=== PATIENT | male | born 1960 | race Caucasian/White ===

== ENCOUNTER 2018-05-22 10:41 | Inpatient (IN) | payer OTHER ==
[2018-05-22] MEDS ORDERED: cloNIDine 0.1 MG TAB ONE (11:35)
[2018-05-22 11:37] LABS: Hemoglobin 12.7 g/dL (14.0-18.0); Mean Corpuscular HGB CONC 33.4 g/dL (32.0-36.0); Mean Corpuscular Hemoglobin 27.9 pg (27.0-31.0); Mean Corpuscular Volume 83.7 fL (78.0-98.0); Platelet Count 202 thou/uL (130-400); RBC Distribution Width 14.3 % (11.5-14.5); Red Blood Cell (RBC) Count 4.56 mill/uL (4.70-6.10); White Blood Cell (WBC) Count 13.1 thou/uL (4.8-10.8)
[2018-05-22 11:46] LABS: ALT (SGPT) 12 U/L (8-55); AST (SGOT) 14 U/L (5-34); Albumin 3.8 g/dL (3.5-5.0); Alkaline Phosphatase 80 U/L (40-150); Anion Gap 10 mmol/L (10-20); BUN (Urea Nitrogen) 12 mg/dL (8.4-25.7); Bilirubin, Total 0.6 mg/dL (0.2-1.2); CK (CPK) 58 U/L (30-200); Calc. Creatinine Clearance 0 mL/min (70-130); Calcium 9.5 mg/dL (7.8-10.44); Carbon Dioxide 26 mmol/L (22-29); Chloride 103 mmol/L (98-107); Estimated GFR-MDRD Greater than 90; Globulin 4.1 g/dL (2.4-3.5); Glucose 120 mg/dL (70-105); Potassium 4.1 mmol/L (3.5-5.1); Protein, Total 7.9 g/dL (6.0-8.3); Sodium 135 mmol/L (136-145)
--- NOTE | 2018-05-22 11:48 | RAD ---
ONE VIEW CHEST: HISTORY: Pain. COMPARISON: None. FINDINGS: Normal cardiac silhouette. The pulmonary vessels and hilum are normal. Costophrenic angles are clhoe r. No consolidation or mass. No pneumothorax or osseous abnormalities. IMPRESSION: No acute cardiopulmonary process. POS: [facility]
[2018-05-22 11:50] LABS: CKMB 2.5 ng/mL (0-6.6); Troponin I 0.076 ng/mL (< 0.028)
[2018-05-22 11:59] LABS: Band 1 % (5-11); Lymphocytes 45 % (21-51); MDiff Complete? YES; Monocytes 3 % (0-10); Neutrophil 42 % (42-75); PLT Morphology Comment Appears Adequate; Reactive Lymphocytes 9 % (0-10)
[2018-05-22] MEDS ORDERED: Ondansetron HCl/PF 4 MG/2 ML Vial IVP PRN (14:38)
[2018-05-22] MEDS ORDERED: Sodium Chloride 0.9% 1,000 ML IV SCH (14:38)
[2018-05-22] MEDS ORDERED: Acetaminophen 325 MG TAB PO PRN (14:38)
[2018-05-22] MEDS ORDERED: HYDROcodone/Acetaminophen 5/325 mg Tablet PO PRN ×2 (14:38)
[2018-05-22] MEDS ORDERED: Ondansetron ODT 4 MG TAB SL PRN (14:38)
[2018-05-22 14:55] LABS: Troponin I 0.546 ng/mL (< 0.028)
[2018-05-22] MEDS ORDERED: Communication Order-Pharmacy FS SCH (16:15)
[2018-05-22] MEDS ORDERED: Atorvastatin Calcium 40 MG TAB PO SCH (16:30)
[2018-05-22] MEDS ORDERED: Enoxaparin Sodium 120 MG/0.8 ML SYRINGE SC SCH (16:30)
[2018-05-22] MEDS: Metoprolol Tartrate 25 MG TAB PO SCH (21:03)
[2018-05-22 21:30] LABS: CKMB 5.8 ng/mL (0-6.6)
[2018-05-22 21:33] LABS: Troponin I 0.882 ng/mL (< 0.028)
--- NOTE | 2018-05-22 23:41 | HP ---
DATE OF ADMISSION: 05/22/2018 CHIEF COMPLAINT: Chest pain. HISTORY OF PRESENT ILLNESS: This is a 58-year-old male patient of Dr. Kaz Soto, who c pedro in with new onset of chest pain with radiation to the neck, jaw, shoulder, and then left hand, st arted acutely this morning after woke up when he was at rest. Denied any other symptoms. No headach e, visual changes or nausea or vomiting. He does say the chest pain feels like a pressure or crushin g-type pain, got slight shortness of breath with it once more of a steady sensation and it does not c ome and go. He does think he has had similar symptoms over the past 6 months, but it has only been w hen he is outside working in the heat and he would rest with that and the symptoms would subside, thi s is the first time this has happened while he was at rest. PAST MEDICAL HISTORY: Positive for diabetes and hyperlipidemia. PAST SURGICAL HISTORY: He has had a right knee surgery and a left foot surgery. CURRENT MEDICATIONS: Currently none. He has not been compliant with his lipid medicines and his sug ars have been good enough that he was led to believe that he could stop his glipizide that he was on. ALLERGIES: Has no known drug allergies. SOCIAL HISTORY: He is . No toxic habits. FAMILY HISTORY: He has had multiple members of his family that had coronary artery disease. I think both parents from heart disease at a young age. REVIEW OF SYSTEMS: Denies any fevers or chills. No headache, no visual changes, no troubles chewing or swallowing. He has had the symptoms as in the HPI, but no cough, no hemoptysis. Denies any naus ea, vomiting, diarrhea, constipation, no changes in bowel or bladder habits. Denies any neuromuscula r symptoms. No motor or sensory deficits. Denies any anxiety/depression symptoms, no suicidal or ho micidal ideations. No paresis or paresthesias. PHYSICAL EXAMINATION: GENERAL: He is resting comfortably in bed, sitting up, awake, and alert. VITAL SIGNS: His temperature is 98.9, pulse 77, BP is 156/84, respirations are 18, sat 99% on room a ir. HEENT EXAM: Essentially unremarkable. Normocephalic, atraumatic cranium with pupils that are equal, round, and reactive to light and accommodation. Extraocular movements are intact. He does wear gla sses. His sclerae is anicteric. Mucosa is moist. NECK: Supple, no JVD, no bruits, no thyromegaly, no lymphadenopathy. LUNGS: Clear to auscultation bilaterally with no rales, rhonchi, or wheezes. HEART: S1 and S2, with no rubs, murmurs, or gallops. ABDOMEN: Soft, nontender, nondistended, no palpable masses, no hepatosplenomegaly. Bowel sounds hyp oactive throughout. GENITOURINARY: Exams deferred. EXTREMITIES: Show good palpable pulses x4. No cyanosis or clubbing. There is some slight chronic e ye to the left lower extremity since surgery. NEUROLOGIC: Cranial nerves II through XII are equal and symmetrical. He is alert and oriented x4. There are no motor or sensory deficits appreciated. LABORATORY AND X-RAY FINDINGS: White count 13.1, H and H is 12.7 and 38.2 respectively with 202,000 platelets. Sodium is 134, potassium is 4.0, chloride is 103, bicarb is 26, BUN is 12, creatinine 0.8 , glucose at 120. His CK-MB is 2.5, troponin initially was indeterminate at 0.07, but then #2 was el evated at 0.54, and #3 is 0.85. BNP is upper limits of normal at 104. ASSESSMENT AND PLAN: Chest pain with likely coronary artery disease. Cardiology has seen the patien t and will catheterize him in the morning.
[2018-05-23] MEDS: Sodium Chloride 0.9% 1,000 ML IV SCH ×3 (00:16→17:47)
[2018-05-23] MEDS: Metoprolol Tartrate 25 MG TAB PO SCH ×2 (06:22→21:17)
[2018-05-23] MEDS ORDERED: Lidocaine 1% (PF) 30 ML VIAL ONE ×2 (06:32→07:36)
[2018-05-23] MEDS ORDERED: Heparin 0 ML ONE (06:32)
--- NOTE | 2018-05-23 07:55 | PRG ---
DATE OF SERVICE: 05/23/2018 Mr. Andersen is doing well. He reports no further chest pain. OBJECTIVE: VITAL SIGNS: Blood pressure 141/74, pulse 61, temperature 97.4. LUNGS: His lungs are clear. HEART: Reveals no murmur. LABORATORY: Troponins are a progressively elevated now at 0.882. IMPRESSION: Non-ST segment elevated myocardial infarction. PLAN: The patient is to undergo cardiac cath today.
[2018-05-23] MEDS ORDERED: Iopamidol 370 76% 100 ML VIAL ONE (11:06)
[2018-05-23] MEDS ORDERED: Midazolam HCl 2 mg/2 ml Vial ONE (11:23)
[2018-05-23] MEDS ORDERED: traMADol HCl 50 MG TAB PO PRN (11:44)
[2018-05-23] MEDS ORDERED: Acetaminophen/Codeine 30-300mg Tablet PO PRN ×2 (11:44)
[2018-05-23] MEDS ORDERED: Nitroglycerin 0.4 MG TAB (25 Tab Bottle) SL PRN (11:44)
[2018-05-23] MEDS ORDERED: Sodium Chloride 0.9% 200 ML IV SCH (11:45)
[2018-05-23] MEDS ORDERED: Communication Order-Pharmacy FS SCH (12:38)
[2018-05-23 14:24] LABS: Hemoglobin A1c 5.7 % (4.0-6.0)
--- NOTE | 2018-05-23 16:14 | CON ---
DATE OF CONSULTATION: 05/23/2018 HISTORY OF PRESENT ILLNESS: This is a 58-year-old gentleman accompanied by his who presented wi th a more severe episode of chest discomfort radiating to his left arm, shoulder, jaw and neck. He h as been having milder symptoms, particularly with exertion that resolved with rest. Cardiac enzymes showed a slight troponin bump on admission and a cardiac catheterization today showed a 60% left main , 80%-90% long LAD lesion with disease in 2 small diagonals. His circumflex consisted of a bifurcati ng OM that had significant disease and then a right coronary artery that was relatively free of disea se until the distal third of the PDA, which had stenosis. Left ventricular systolic function appeare d normal. Cardiac echo demonstrated normal ejection fraction with no significant valvular disease. PAST MEDICAL HISTORY: Includes diabetes mellitus on oral medications, which he stopped in the recent past because of a 50-pound weight loss and improvement in his sugars. He also has a history of dysl ipidemia and he also stopped those medicines, although it is not certain what his cholesterol levels were running. He has a positive family history of heart disease in a mother and brother who had surg ical intervention. PAST SURGICAL HISTORY: Includes some sort of right knee arthroscopy and left foot surgery. SOCIAL HISTORY: He has never smoked. He is . 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 He does have at least 2 children. REVIEW OF SYSTEMS: The patient has no complaints with GI or function. He denies claudication and has no previous history of TIA or stroke. PHYSICAL EXAMINATION: VITAL SIGNS: Weight 238, height 5 feet 11 inches stated. NECK: No carotid bruits. LUNGS: Clear to auscultation. CARDIAC: Regular rate and rhythm. No gallops or murmurs. ABDOMEN: Soft, nontender, no masses, no organomegaly, no aneurysm. EXTREMITIES: He has palpable left posterior tibial pulse and I do not currently able to feel any ped al pulses in his right foot. He has no peripheral edema. He is a right arm dominant, has a good All en's test in his left arm. PLAN: At this time is for coronary artery bypass grafting to the LAD. He has a ramus or high diagon al that subtotally occluded. It may be large enough to graft and the obtuse marginal could be grafte d. The PDA and diagonal branches appear too small to graft. I discussed the procedure, risks, compl ications, and expectations, and informed consent has been obtained.
[2018-05-23] MEDS ORDERED: Atorvastatin Calcium 40 MG TAB PO SCH (21:00)
[2018-05-24] MEDS: Sodium Chloride 0.9% 1,000 ML IV SCH (04:12)
[2018-05-24] MEDS: Metoprolol Tartrate 25 MG TAB PO SCH (05:06)
[2018-05-24] MEDS ORDERED: CEFAZOLIN/Water 2 GM/20 ML SYRINGE ONE (06:11)
[2018-05-24] MEDS ORDERED: Vecuronium 10 MG VIAL ONE ×2 (06:36→13:17)
[2018-05-24] MEDS ORDERED: Dexmedetomidine 200 MCG/2 ML VIAL ONE (06:36)
[2018-05-24] MEDS ORDERED: Midazolam HCl 5 mg/5 ml Vial ONE (06:36)
[2018-05-24] MEDS ORDERED: Phenylephrine HCL 10 MG/ML VIAL ONE (06:37)
[2018-05-24] MEDS ORDERED: Heparin 10,000 UNITS/1 ML VIAL 30,000 UNITS in Sodium Chloride 0.9% 1,000 ML FS SCH (07:00)
[2018-05-24] MEDS ORDERED: Insulin Regular 300 UNITS/3 ML VIAL ONE (07:28)
[2018-05-24] MEDS ORDERED: Nitroglycerin 50 MG/250 ML BOT ONE (10:13)
[2018-05-24] MEDS ORDERED: Mannitol 12.5 GM/50 ML ONE (10:13)
[2018-05-24] MEDS ORDERED: Heparin 30,000 units/30 ml VIAL ONE ×2 (10:13→13:17)
[2018-05-24] MEDS ORDERED: Potassium Chlo 10 mEq/5 ml Syr ONE (10:13)
[2018-05-24] MEDS ORDERED: Sodium Bicarb 50 MEQ/50 ML Abboject 8.4% SYRINGE ONE ×2 (10:13→13:17)
[2018-05-24] MEDS ORDERED: Aminocaproic Acid 5 GM/20 ML VIAL ONE ×2 (10:13→13:17)
[2018-05-24] MEDS ORDERED: Bisacodyl 10 MG SUPP PR PRN (11:53)
[2018-05-24] MEDS ORDERED: Guaifenesin DM 100-10/5 ML UDCUP PO PRN (11:53)
[2018-05-24] MEDS ORDERED: Post-Op Insulin Drip Protocol IVPB ONE (11:53)
[2018-05-24] MEDS ORDERED: Bisacodyl 5 MG TAB PO PRN (11:53)
[2018-05-24] MEDS ORDERED: Promethazine HCl 25 MG/ML VIAL IM PRN (11:53)
[2018-05-24] MEDS ORDERED: Norepinephrine 8 MG/0.9% NS 250 ML IVPB PRN (11:53)
[2018-05-24] MEDS ORDERED: Hetastarch 6% 500 ML 500 ML IVPB PRN (11:53)
[2018-05-24] MEDS ORDERED: Acetaminophen 325 MG TAB PO PRN (11:53)
[2018-05-24] MEDS ORDERED: Potassium Chloride 20 MEQ/100 ML PREMIX BAG IVPB PRN (11:53)
[2018-05-24] MEDS ORDERED: Nitroglycerin 50 MG/250 ML BOT 250 ML IVPB PRN (11:53)
[2018-05-24] MEDS ORDERED: HYDROcodone/Acetaminophen 5/325 mg Tablet PO PRN ×2 (11:53)
[2018-05-24] MEDS ORDERED: Fentanyl 100 MCG/2 ML VIAL SLOW IVP PRN (11:53)
[2018-05-24] MEDS ORDERED: hydrALAZINE 20 MG/ML VIAL SLOW IVP PRN (11:53)
[2018-05-24] MEDS ORDERED: Ondansetron HCl/PF 4 MG/2 ML Vial IVP PRN (11:53)
[2018-05-24] MEDS ORDERED: DOPamine 400 MG/D5W 250 ML 250 ML IVPB PRN (11:53)
[2018-05-24] MEDS ORDERED: niCARdipine HCl 25 MG in Sodium Chloride 0.9% 250 ML 240 ML IVPB PRN (11:53)
[2018-05-24] MEDS ORDERED: Mag-Al 1200 mg/1200 mg/30 ML UDCUP PO PRN (11:53)
[2018-05-24] MEDS ORDERED: Dextrose 50% Abboject 50 ML SYRINGE SLOW IVP PRN (11:55)
[2018-05-24] MEDS ORDERED: Dextrose 5% in Water 1,000 ML IV PRN (11:55)
[2018-05-24] MEDS ORDERED: Insulin Regular 300 UNITS/3 ML VIAL SC PRN (11:55)
[2018-05-24 12:00] LABS: CO2 Tension 44.4 mmHg (35.0-45.0); pH, Arterial 7.36 (7.35-7.45)
[2018-05-24 12:01] LABS: Actual Bicarbonate (HCO3a) 24.6 mEq/L (22-28); Hemoglobin (Hb) 11.7 g/dL (14.0-18.0); O2 Tension (PaO2) 117.1 mmHg (80.0-100.0)
[2018-05-24 12:02] LABS: Calcium, Ionized 1.1 mmol/L (1.12-1.30); Puncture Site A-LINE
[2018-05-24 12:05] LABS: #Basophils 0.3 thou/uL (0.0-0.2); #Eosinphils 0.1 thou/uL (0.0-0.7); #Lymphocytes 5.9 thou/uL (1.20-3.40); #Monocytes 0.2 thou/uL (0.11-0.59); #Neutrophils 5.7 thou/uL (1.40-6.50); %Basophils 2.2 % (0.0-1.0); %Lymphocytes 48.6 % (21.0-51.0); %Monocytes 1.5 % (0.0-10.0); %Neutrophils 46.7 % (42.0-75.0); Hemoglobin 10.8 g/dL (14.0-18.0); Mean Corpuscular HGB CONC 32.2 g/dL (32.0-36.0); Mean Corpuscular Hemoglobin 27.3 pg (27.0-31.0); Mean Corpuscular Volume 84.8 fL (78.0-98.0); Mean Platelet Volume 7.6 fL (7.4-10.4); Platelet Count 148 thou/uL (130-400); RBC Distribution Width 14.5 % (11.5-14.5); Red Blood Cell (RBC) Count 3.95 mill/uL (4.70-6.10); White Blood Cell (WBC) Count 12.1 thou/uL (4.8-10.8)
[2018-05-24 12:20] LABS: INR-International Normal Ratio 1.2; PTT 31.4 SEC (22.9-36.1); Prothrombin Time 15.6 SEC (12.0-14.7)
[2018-05-24 12:26] LABS: Anion Gap 7 mmol/L (10-20); BUN (Urea Nitrogen) 13 mg/dL (8.4-25.7); Calc. Creatinine Clearance 160 mL/min (70-130); Calcium 8.1 mg/dL (7.8-10.44); Carbon Dioxide 25 mmol/L (22-29); Chloride 110 mmol/L (98-107); Estimated GFR-MDRD Greater than 90; Glucose 160 mg/dL (70-105); Sodium 138 mmol/L (136-145)
[2018-05-24] MEDS ORDERED: Magnesium Sulfate 5 GM in Sodium Chloride 0.9% 250 ML 1,000 ML IV SCH (12:30)
--- NOTE | 2018-05-24 12:52 | OP ---
PREOPERATIVE DIAGNOSIS: Coronary artery disease. PROCEDURES: Coronary bypass graft x4, left internal mammary artery good quality to a 1.5-2 mm LAD, s aphenous vein good quality to a 1.5-2 mm OM distal branch, good radial artery as a sequential graft t o a ramus 1.5 and diagonal 11.25. SURGEON: Sung Lynn M.D. SELF PAY REPRESENTATIVE: Dr. Soto. TRANSFUSION: None. PROCEDURE IN DETAIL: After adequate anesthesia had been obtained, the patient was prepped and draped . I harvested the left radial artery after ensuring good collateral flow with plethysmography. Foll owing this, I performed a median sternotomy while Dr. Soto performed an endovascular vein harvest of the left greater saphenous vein above the knee. After harvesting the ROD without entering the pleur a, the patient was heparinized, the mammary passed through a hole in the pericardium, treated with in traluminal papaverine. Aorta and right atrium were cannulated through pursestring sutures, following which, cardiopulmonary bypass was begun. After inspecting vessels, aorta was cross-clamped and a li ter of cold blood cardioplegia given through the aortic root. Following this, the distal anastomoses were completed. Crossclamp was removed, partial occluding clamp placed, and a single venous anastom osis performed on the aortic root marked with a ring. The radial artery was then anastomosed to the wei of the vein graft, following which the patient was weaned from cardiopulmonary bypass after insp ection of distal anastomosis. Cannulas were removed. Protamine given systemically and aortic cannul ations site secured with a 4-0 Prolene suture. Following this, hemostasis was obtained. Mediastinal drains placed x2, following which the sternum was reapproximated with #7 interrupted wire using vanc omycin paste on the sternal edges, platelet rich blood and platelet-poor plasma. Subcutaneous tissue and skin were closed in layers.
[2018-05-24] MEDS: Ketorolac Tromethamine 30 MG/ML VIAL IVP SCH ×2 (12:54→17:44)
[2018-05-24] MEDS ORDERED: Magnesium Sulfate 5 GM in Sodium Chloride 0.9% 1,000 ML IV SCH (13:00)
[2018-05-24 13:03] LABS: Actual Bicarbonate (HCO3a) 24.1 mEq/L (22-28); Base Excess (BEa) -0.3 mEq/L (-2.0 to +3.0); CO2 Tension 38.6 mmHg (35.0-45.0); O2 Tension (PaO2) 87.6 mmHg (80.0-100.0); pH, Arterial 7.41 (7.35-7.45)
[2018-05-24 13:04] LABS: Calcium, Ionized 1.2 mmol/L (1.12-1.30); Hemoglobin (Hb) 11.7 g/dL (14.0-18.0); Puncture Site LINE
[2018-05-24] MEDS ORDERED: Calcium Chloride 1 GM/10 ML Abboject SYRINGE ONE (13:17)
[2018-05-24] MEDS ORDERED: PROPOFOL 200 MG/20 ML VIAL ONE (13:17)
[2018-05-24] MEDS ORDERED: Thrombin 5000 UNITS/5 ML VIAL ONE (13:17)
[2018-05-24] MEDS ORDERED: Lidocaine 2% PF 100 mg/5 ml Syringe ONE (13:17)
[2018-05-24] MEDS ORDERED: Magnesium 5 GM/10 ML VIAL ONE (13:17)
[2018-05-24] MEDS ORDERED: ePHEDrine/0.9% NaCl/PF SYRINGE 50 mg/10 ml ONE (13:17)
[2018-05-24] MEDS ORDERED: Papaverine 60 MG/2 ML VIAL ONE (13:17)
[2018-05-24] MEDS ORDERED: PHENYLEPHRINE-NS 100 MCG/ML 10 ML SYRINGE ONE (13:17)
[2018-05-24] MEDS ORDERED: Lidocaine 1% PF 5 ML VIAL ONE (13:17)
[2018-05-24] MEDS ORDERED: Heparin 5,000 UNITS/ML VIAL ONE (13:17)
[2018-05-24] MEDS ORDERED: Cardioplegic Soln 1,000 ML BAG ONE (13:17)
[2018-05-24] MEDS ORDERED: Protamine Sulfate 250 MG/25 ML VIAL ONE (13:17)
--- NOTE | 2018-05-24 13:45 | RAD ---
CHEST ONE VIEW: HISTORY: Heart surgery. COMPARISON: 05/22/2018 FINDINGS: The cardiac silhouette is magnified by projection and is at the upper limits of normal. Shallow insp iration accentuates pulmonary markings. The mediastinum is midline with postoperative changes. The tip of an endotracheal catheter overlies the thoracic inlet. A left subclavian central venous cathet er projects over the superior vena cava and the azygous vein. Small pockets of gas over the right upper quadrant may be related to soft tissue air from recent surg kiara. surveillance system monitor leads overly the chest. IMPRESSION: Interval postoperative changes of the mediastinum. The tip of the left subclavian central venous cat heter may enter the azygous vein, where it empties into the superior vena cava. The endotracheal catheter is in good radiographic position. POS: [facility]
[2018-05-24] MEDS: CEFAZOLIN/Water 2 GM/20 ML SYRINGE SLOW IVP SCH ×2 (14:12→21:36)
[2018-05-24] MEDS: Fentanyl 100 MCG/2 ML VIAL SLOW IVP PRN (14:44)
[2018-05-24 17:41] LABS: Hemoglobin 11.5 g/dL (14.0-18.0)
[2018-05-24 18:06] LABS: Potassium 4.5 mmol/L (3.5-5.1)
[2018-05-24] MEDS ORDERED: Famotidine/PF 20 mg/2ml Vial SLOW IVP SCH (21:00)
[2018-05-25] MEDS: Ketorolac Tromethamine 30 MG/ML VIAL IVP SCH ×4 (00:17→18:13)
--- NOTE | 2018-05-25 02:34 | CON ---
DATE OF CONSULTATION: 05/24/2018 SERVICE: Pulmonary Medicine. REASON FOR CONSULTATION: ICU patient. HISTORY OF PRESENT ILLNESS: The patient is a 58-year-old white male with past medical history significant for hypertension, who presents to the hospital with chest discomfort. Ultimately, he was found to have severe coronary artery disease. Coronary bypass graft was performed and he is recovering nicely from that procedure today. He denies any current nausea, vomiting, fevers or chills. At this point, he has appropriate chest discomfort. Otherwise, there has been no interval change to his condition. He tested strongly positive for obstructive sleep apnea. His suggested that he is a heroic snorer. He will frequently wake himself up choking or gasping in the middle of the night. He falls asleep during the daytime and even at jew. He has nocturia x3 to x4. PAST MEDICAL HISTORY: 1. Hypertension. 2. Dyslipidemia. 3. Type 2 diabetes mellitus. 4. Obstructive sleep apnea, suspected. 5. Coronary artery disease, severe. PAST SURGICAL HISTORY: 1. Right knee surgery. 2. Left foot surgery. 3. Coronary bypass graft x4 vessels. ALLERGIES: No known drug allergies. MEDICATIONS: List of his inpatient medications were reviewed. No specific updates were made at this time. SOCIAL HISTORY: Negative for alcohol, tobacco or illicit drug use. He has no exposure to chemicals, dust, asbestos or tuberculosis. He is currently , has excellent functional status. FAMILY HISTORY: Noncontributory. REVIEW OF SYSTEMS: General, head, ears, eyes, nose, throat, cardiovascular, respiratory, GI, , musculoskeletal, neurologic and skin is negative except as mentioned in the HPI. PHYSICAL EXAMINATION: VITAL SIGNS: Afebrile, pulse 72, blood pressure 135/56, respirations 17, saturation 99% on 2 liters nasal cannula. GENERAL: The patient is awake, alert, in no apparent distress. LUNGS: Excellent air entry. There is no prolonged expiratory phase, wheezing, rhonchi, or crackles present. HEART: Normal rate, regular. ABDOMEN: Soft, nontender, nondistended. Bowel sounds are positive. MUSCULOSKELETAL: No cyanosis or clubbing. There is no pitting in the bilateral lower extremities. NEUROLOGIC: Grossly nonfocal. GENITOURINARY: Le catheter in place. LABORATORIES: Hemoglobin 11.5. WBC 12.1, platelets 148,000. INR 1.2, pH 7.41 , pCO2 38, pO2 87. Potassium 4.5. Blood sugar ranges from 113 to 139. Basic metabolic profile was essentially unremarkable following the procedure. IMAGING: Chest x-ray demonstrates no acute cardiopulmonary abnormality. ASSESSMENT: 1. Coronary artery disease. 2. Acute hypoxic respiratory failure, likely transient in the postop setting. 3. Coronary bypass graft x4 vessels, postop day 0. 4. Obstructive sleep apnea, strongly suspected. DISCUSSION AND PLAN: The patient is doing absolutely wonderful in the perioperative period. I will continue to follow while he remains in this location. In the outpatient setting, he will benefit from a sleep apnea evaluation with an in-lab polysomnogram. I will continue to follow along for the time being. 70 minutes have been devoted to this patient in various activities. I personally reviewed all imaging studies and laboratory data noted within this document. For fifty percent of this time, I was interacting with the patient at the bedside or coordinating care with the care team. For the remainder of the time I was immediately available to the patient in the hospital unit. JADEN
[2018-05-25] MEDS: Fentanyl 100 MCG/2 ML VIAL SLOW IVP PRN (03:09)
[2018-05-25 05:16] LABS: Anion Gap 8 mmol/L (10-20); BUN (Urea Nitrogen) 15 mg/dL (8.4-25.7); Calc. Creatinine Clearance 152 mL/min (70-130); Calcium 8.1 mg/dL (7.8-10.44); Carbon Dioxide 28 mmol/L (22-29); Chloride 104 mmol/L (98-107); Estimated GFR-MDRD Greater than 90; Glucose 132 mg/dL (70-105); Potassium 4.4 mmol/L (3.5-5.1); Sodium 136 mmol/L (136-145)
[2018-05-25 06:04] LABS: Band 7 % (5-11); Hemoglobin 11.2 g/dL (14.0-18.0); Lymphocytes 42 % (21-51); MDiff Complete? YES; Mean Corpuscular Hemoglobin 26.5 pg (27.0-31.0); Mean Corpuscular Volume 85.5 fL (78.0-98.0); Mean Platelet Volume 7.9 fL (7.4-10.4); Monocytes 8 % (0-10); Neutrophil 42 % (42-75); Platelet Count 193 thou/uL (130-400); RBC Distribution Width 14.6 % (11.5-14.5); Red Blood Cell (RBC) Count 4.23 mill/uL (4.70-6.10); White Blood Cell (WBC) Count 17.6 thou/uL (4.8-10.8)
[2018-05-25] MEDS: CEFAZOLIN/Water 2 GM/20 ML SYRINGE SLOW IVP SCH (06:41)
[2018-05-25 07:58] VITALS: BMI 31.8
[2018-05-25] MEDS ORDERED: Acetaminophen 325 MG TAB PO PRN (08:00)
[2018-05-25] MEDS ORDERED: Fentanyl 100 MCG/2 ML VIAL SLOW IVP PRN ×2 (08:00)
[2018-05-25] MEDS ORDERED: Nitroglycerin 0.4 MG TAB (25 Tab Bottle) SL PRN (08:00)
[2018-05-25] MEDS ORDERED: Mag-Al 1200 mg/1200 mg/30 ML UDCUP PO PRN (08:00)
[2018-05-25] MEDS ORDERED: diphenhydrAMINE 25 MG CAP PO PRN (08:00)
[2018-05-25] MEDS ORDERED: Ondansetron HCl/PF 4 MG/2 ML Vial IVP PRN (08:00)
[2018-05-25] MEDS ORDERED: Bisacodyl 10 MG SUPP PR PRN (08:00)
[2018-05-25] MEDS ORDERED: Guaifenesin DM 100-10/5 ML UDCUP PO PRN (08:00)
[2018-05-25] MEDS ORDERED: Zolpidem Tartrate 5 MG TAB PO PRN (08:00)
[2018-05-25] MEDS ORDERED: Mineral Oil ENEMA PR PRN (08:00)
[2018-05-25] MEDS ORDERED: Bisacodyl 5 MG TAB PO PRN (08:00)
[2018-05-25] MEDS ORDERED: HYDROcodone/Acetaminophen 5/325 mg Tablet PO PRN (08:00)
[2018-05-25] MEDS: Tamsulosin HCl 0.4 MG CAP PO SCH (08:30)
[2018-05-25] MEDS: HYDROcodone/Acetaminophen 5/325 mg Tablet PO PRN ×3 (08:30→20:52)
--- NOTE | 2018-05-25 08:52 | RAD ---
SINGLE VIEW OF CHEST: Date: 05/25/18 COMPARISON: 05/24/18. HISTORY: Status post open heart surgery. FINDINGS: Single view of the chest shows an enlarged but stable cardiomediastinal silhouette. The patient is st atus post sternotomy. The endotracheal tube has been removed. Central venous catheter is again seen w ith its tip likely in the azygos vein. There is no evidence of consolidation, mass, or pleural effusi on. IMPRESSION: Stable exam status post extubation. POS: [facility]
[2018-05-25] MEDS ORDERED: Aspirin 325 MG TAB PO SCH (09:00)
[2018-05-25] MEDS: Famotidine 20 MG TAB PO SCH ×2 (09:24→20:52)
[2018-05-25] MEDS: Aspirin 325 mg Enteric Coated Tablet PO SCH (09:24)
--- NOTE | 2018-05-25 11:33 | PRG ---
DATE OF SERVICE: 05/25/2018 SERVICE: Pulmonary Medicine. INTERVAL HISTORY: The patient is doing great from a respiratory standpoint. He denies any current chest pain, nausea, vomiting, fevers, chills, shortness of breath. He continues to have a little bit of chest discomfort associated with his operation. Outside of this, there has been no interval change to his condition. PHYSICAL EXAMINATION: VITAL SIGNS: Afebrile, pulse 84, blood pressure 102/64, respirations 21, saturation 96% on room air. GENERAL: The patient is awake, alert, in no apparent distress. LUNGS: Excellent air entry. There is no prolonged expiratory phase, wheezing, rhonchi, or crackles present. HEART: Normal rate, regular. ABDOMEN: Soft, nontender, nondistended. Bowel sounds are positive. MUSCULOSKELETAL: No cyanosis or clubbing. Trace pitting is present bilateral lower extremities. NEUROLOGIC: Grossly nonfocal. LABORATORY DATA: WBC 17.6 and gently up-trending, hemoglobin 11.2, platelets 193,000. Band count is only 7% with 42% neutrophils, lymphocytes are stable at 42%. INR 1.2. Basic metabolic profile is essentially unremarkable otherwise. IMAGING: Chest x-ray demonstrates stable tubes and lines as previously detailed. There has been interval extubation. ASSESSMENT: 1. Coronary artery disease. 2. Acute hypoxic respiratory failure, resolved. 3. Coronary artery bypass graft x4 vessels, postoperative day #1. 4. Obstructive sleep apnea, strongly suspected. DISCUSSION AND PLAN: The patient will likely have his chest tube removed today or tomorrow. From my perspective, he is stable for transition out of the ICU to the medical unit, but I will leave that to the discretion of our surgical colleagues. I will continue to follow in this location. We will watch the white blood cell count fairly closely to make certain it trends in the right direction, but at this point, the patient certainly does not have any features suggestive of a systemic inflammatory process. JADEN
[2018-05-25] MEDS ORDERED: Dextrose 50% Abboject 50 ML SYRINGE SLOW IVP PRN (11:46)
[2018-05-25] MEDS ORDERED: Insulin Regular 300 UNITS/3 ML VIAL SC PRN (11:46)
[2018-05-25] MEDS ORDERED: Dextrose 5% in Water 1,000 ML IV PRN (11:46)
--- NOTE | 2018-05-25 15:21 | EKG ---
Test Reason : POST CABG Blood Pressure : / mmHG Vent. Rate : 067 BPM Atrial Rate : 067 BPM P-R Int : 164 ms QRS Dur : 080 ms QT Int : 424 ms P-R-T Axes : 065 007 -15 degrees QTc Int : 448 ms Normal sinus rhythm Inferior infarct , age undetermined cannot be excluded Abnormal ECG Confirmed by BHANU VERMA ([id number]) on 05/25/2018 3:20:27 PM Referred By: VILMA Confirmed By:BHANU VERMA
[2018-05-25] MEDS ORDERED: Simvastatin 40 MG TAB PO SCH (21:00)
[2018-05-26] MEDS: Ketorolac Tromethamine 30 MG/ML VIAL IVP SCH ×2 (00:55→06:22)
--- NOTE | 2018-05-26 08:14 | CT ---
PRELIMINARY REPORT/[facility]/EMERGENTY AFTER-HOURS PROCEDURE CT Head Without Intravenous Contrast CLINICAL HISTORY: 58 years old, male; Signs and symptoms; Other: Right arm numbness; Patient HX: Post cabg, right arm n umbness TECHNIQUE: Axial computed tomography images of the head/brain without intravenous contrast. COMPARISON: No relevant prior studies available. FINDINGS: Brain: Normal. No hemorrhage. No significant white matter disease. No edema. Ventricles: Normal. No ventriculomegaly. Bones/joints: Normal. No acute fracture. Sinuses: Normal as visualized. No acute sinusitis. Mastoid air cells: Normal as visualized. No mastoid effusion. Soft tissues: Normal. IMPRESSION: No acute findings. Thank you for allowing us to participate in the care of your patient. Dictated and Authenticated by: Luz Wilkes DO 05/26/2018 6:42 AM Central Time ([place] & [place]) FINAL REPORT BRAIN CT WITHOUT IV CONTRAST: EMERGENCY AFTER HOURS EXAM: TIME: 6:04 a.m. DATE: 05/26/18. FINDINGS: Mild sinus mucosal changes. No significant acute intracranial process. If there is clinical concern for acute infarct, followup MRI is suggested. Findings discussed with Dr. Kaz Soto at 7:30 a.m. CODE LAUREN POS: [facility]
--- NOTE | 2018-05-26 08:16 | PRG ---
DATE OF SERVICE: 05/26/2018 Mr. Andersen has complained of inability to use his right hand this morning. It was noted to be sudden onset. Otherwise, no other medical complaints. No headache, slurred speech, difficulty speaking, t alking, swallowing. No headache, otherwise noted. PHYSICAL EXAMINATION: VITAL SIGNS: Temperature 97.6, BP 113/65. LUNGS: Clear. HEART: Reveals no murmur. NEUROLOGIC: He is unable to flex his right wrist. He does have a hand ccna noted. NEUROLOGIC: Cranial nerves II-XII are intact. LABORATORY: CT scan of brain is negative. IMPRESSION: Probable embolic phenomenon cerebrovascular accident. PLAN: 1. The patient has already been started on Plavix. 2. We will get MRI of the brain. 3. Neuro consult has been ordered.
[2018-05-26] MEDS: Clopidogrel Bisulfate 75 MG TAB PO SCH (09:17)
[2018-05-26] MEDS: Tamsulosin HCl 0.4 MG CAP PO SCH (09:17)
[2018-05-26] MEDS: Furosemide 40 MG TAB PO SCH (09:17)
[2018-05-26] MEDS: Aspirin 325 mg Enteric Coated Tablet PO SCH (09:17)
[2018-05-26] MEDS: Famotidine 20 MG TAB PO SCH ×2 (09:18→21:22)
[2018-05-26] MEDS: Enoxaparin Sodium 40 MG/0.4 ML SYRINGE SC SCH ×2 (09:19→21:23)
[2018-05-26] MEDS: Potassium Chloride 10 MEQ TAB PO SCH (09:31)
--- NOTE | 2018-05-26 12:07 | MRI ---
MRI BRAIN WITHOUT CONTRAST: HISTORY: Post CABG, right arm numbness. FINDINGS: Correlation is made with the CT scan from earlier today. There is restricted diffusion in the left precentral gyrus consistent with acute infarction. A few f oci of T2 prolongation in the periventricular and subcortical white matter consistent with chronic sm all-vessel ischemic disease. No hemorrhage, midline shift, or abnormal extraaxial fluid collections are seen. The ventricular size is appropriate and the basilar cisterns are patent. The visualized p aranasal sinuses and mastoid air cells are well aerated. IMPRESSION: Acute infarction in the left precentral gyrus. POS: [facility]
[2018-05-26] MEDS: HYDROcodone/Acetaminophen 5/325 mg Tablet PO PRN (13:26)
--- NOTE | 2018-05-26 15:40 | ULT ---
BILATERAL CAROTID DUPLEX ULTRASOUND INCLUDING COLOR AND SPECTRAL DOPPLER IMAGING: History: 58-year-old male with history of left CVA. FINDINGS: Minimal visceral plaque in the proximal left ICA. PSV right ICA 78 cm/sec. EVD 25 cm/sec. ICA/CCA ratio is 0.8. PSV left ICA 96 cm/sec. EDV 37 cm/sec. ICA/CCA ratio is 1.0. Vertebral flow is antegrade. IMPRESSION: No hemodynamically significant stenosis. Minimal visceral plaque evidence for atherosclerotic arteria l vascular disease of the left carotid artery. POS: [facility]
[2018-05-26] MEDS ORDERED: Rosuvastatin 20 MG TAB PO SCH (21:00)
--- NOTE | 2018-05-26 23:57 | CON ---
DATE OF CONSULTATION: 05/26/2018 CONSULTING PHYSICIAN: Kaz Soto M.D. IMPRESSION: 1. Small cardioembolic stroke postoperative from coronary artery bypass graft. 2. Diabetes. 3. Hyperlipidemia. 4. Preserved ejection fraction of 50%-55%. PLAN: 1. Add Plavix 75 mg per day. 2. Rehab. HISTORY OF PRESENT ILLNESS: Mr. Andersen is a 58-year-old man who was in good physical shape. He was found to have evidence of coronary artery disease and underwent a CABG by Dr. Lynn. Postoperatively , he was noted to have weakness in his right hand. There was no associated pain or tingling. He den ied any slurred speech, headache, nausea, vomiting, vertigo, lower extremity weakness or numbness. Lori hollingsworth had an MRI of the brain done which showed a small area of acute ischemia in the left precentral gyr us. Echocardiogram shows ejection fraction of 50%-55%. He has been seen by speech therapy and there is no significant swallowing problems. Physical therapy place him in a cock-up splint. He is other jacobs feeling well. PAST MEDICAL HISTORY: As listed above. ALLERGIES: None. SOCIAL HISTORY: Unremarkable. FAMILY HISTORY: Noncontributory. REVIEW OF SYSTEMS: Otherwise, negative. PHYSICAL EXAMINATION: VITAL SIGNS: Stable. He is afebrile. HEENT: Pupils equal and reactive. Conjunctivae clear. NECK: Supple. EXTREMITIES: No cyanosis. NEUROLOGIC: He is alert and appropriate. His speech is fluent and clear. Cranial nerves II-XII are intact. Motor exam shows normal deltoid, biceps and triceps strength, finger flexion and thumb flex ion are 0. Finger extension is 1/5. There is a wrist in flexion and extension weakness as well, but he was in a brace at this point. Lower extremity strength was intact. Sensation was intact in the extremities. Gait was not tested at this point. No abnormal movements were seen. IMAGING: Reviewed. SUMMARY: I feel that his small stroke has a good prognosis for recovery. We would suggest keeping lori im on Plavix for the next 6 months. If he remains asymptomatic for any new issues, it could be disco ntinued at that point.
[2018-05-27] MEDS: HYDROcodone/Acetaminophen 5/325 mg Tablet PO PRN (01:27)
--- NOTE | 2018-05-27 06:11 | DIS ---
HOSPITAL COURSE: This is a 58-year-old gentleman who was admitted with chest pain with radiation to the jaw, shoulder and left hand. He had similar symptoms in the past few months, but not to this [facility]. His troponin showed a slight bump. He underwent cardiac catheterization showing left main an d 3-vessel disease. He was taken to the operating room where he underwent 4-vessel bypass with left internal mammary artery to the LAD and then sequential radial artery to the ramus and diagonal and sa phenous vein graft to a branch of the obtuse marginal. He was incidentally noted to have a patent fo ramen ovale during a transesophageal echocardiography. Postoperatively, he did well; however, on pos toperative day #2 while sitting in the chair noticed loss of function in his right hand. MRI showed a small cerebrovascular accident involving his left cerebrum. He was seen by Dr. Quan. Plavix wa s added to his aspirin regimen and he had minimal function of his right hand at discharge, although d id have some improved function with his wrist flexion. He will be discharged today on aspirin 81 a day, Plavix 75 a day, Tylenol #3 for pain, Crestor 20 at bedtime. He will resume his Flomax 0.4 mg a day. He has also been instructed to follow his sugars a t home and may resume his diabetic oral medication as needed. Discharge and follow up instructions w ere given.
--- NOTE | 2018-05-27 07:29 | PRG ---
DATE OF SERVICE: 05/27/2018 Mr. Andersen is doing well. He has been discharged by Dr. Lynn. I have gone over discharge instructi ons with him. He will follow up with me in approximately 2-3 weeks. We will [facility] for his stroke. He will continue checking his blood sugar daily. He will notify me if he has further problems, he will follow up in 2-3 weeks.
[2018-05-27 07:56] VITALS: TEMP 98
[2018-05-27] MEDS: Potassium Chloride 10 MEQ TAB PO SCH (09:59)
[2018-05-27] MEDS: Enoxaparin Sodium 40 MG/0.4 ML SYRINGE SC SCH (09:59)
[2018-05-27] MEDS: Famotidine 20 MG TAB PO SCH (10:00)
[2018-05-27] MEDS: Furosemide 40 MG TAB PO SCH (10:00)
[2018-05-27] MEDS: Aspirin 325 mg Enteric Coated Tablet PO SCH (10:00)
[2018-05-27] MEDS: Clopidogrel Bisulfate 75 MG TAB PO SCH (10:00)
[2018-05-27] MEDS: Tamsulosin HCl 0.4 MG CAP PO SCH (10:00)
[2018-05-27 10:13] VITALS: BP 166/87
== END 2018-05-27 12:07 | disposition home or self-care (01) | DRG 233 ==
LOC: ERS 10:41 → OBSVTOIN 14:23 → 2SW 14:23 → 2NO 20:50 → CCU 05-24 07:26 → 2SE 05-25 12:09
PROVIDERS: ADMIT Family Medicine; ATTEND Family Medicine
PROC: 4A023N7 Measurement of Cardiac Sampling and Pressure, Left Heart, Percutaneous Approach (ICD-10-PCS; 2018-05-22)
PROC: B2111ZZ Fluoroscopy of Multiple Coronary Arteries using Low Osmolar Contrast (ICD-10-PCS; 2018-05-22)
PROC: 02100Z9 Bypass Coronary Artery, One Artery from Left Internal Mammary, Open Approach (ICD-10-PCS; principal; 2018-05-24)
PROC: 021009W Bypass Coronary Artery, One Artery from Aorta with Autologous Venous Tissue, Open Approach (ICD-10-PCS; 2018-05-24)
PROC: 02110A3 Bypass Coronary Artery, Two Arteries from Coronary Artery with Autologous Arterial Tissue, Open Approach (ICD-10-PCS; 2018-05-24)
PROC: 03BC3ZZ Excision of Left Radial Artery, Percutaneous Approach (ICD-10-PCS; 2018-05-24)
PROC: 06BQ3ZZ Excision of Left Saphenous Vein, Percutaneous Approach (ICD-10-PCS; 2018-05-24)
DX: I21.4 Non-ST elevation (NSTEMI) myocardial infarction (principal); J96.01 Acute respiratory failure with hypoxia; I63.10 Cerebral infarction due to embolism of unspecified precerebral artery; I97.820 Postprocedural cerebrovascular infarction following cardiac surgery; Q21.1 Atrial septal defect; I25.10 Atherosclerotic heart disease of native coronary artery without angina pectoris; E11.9 Type 2 diabetes mellitus without complications; E78.00 Pure hypercholesterolemia, unspecified; G47.33 Obstructive sleep apnea (adult) (pediatric); G83.21 Monoplegia of upper limb affecting right dominant side; Z82.49 Family history of ischemic heart disease and other diseases of the circulatory system; Y83.2 Surgical operation with anastomosis, bypass or graft as the cause of abnormal reaction of the patient, or of later complication, without mention of misadventure at the time of the procedure
CPT/HCPCS: 36415; 36416; 36430; 70450; 70551; 71045; 80048; 80053; 82550; 82553; 82805; 83036; 83880; 84484; 85025; 85610; 85730; 86850; 86900; 86901; 93005; 93010; 93306; 93458; 93798; 93880; 94002; 96360; 99152; 99153; A4216; C1769; G8987-GO-CJ; G8988-GO-CI; J1642; J1644; J1650; J1815; J1885; J2001; J2150; J2250; J2370; J2405; J2440; J2704; J2720; J3010; J3370; J3475; J3480; J7050; P9016; S0017; S0028

== ENCOUNTER 2018-06-03 12:39 | Inpatient (IN) | payer OTHER ==
[2018-06-03 13:03] VITALS: BMI 31.2
[2018-06-03 13:44] LABS: Hemoglobin 10.6 g/dL (14.0-18.0); Mean Corpuscular HGB CONC 32.4 g/dL (32.0-36.0); Mean Corpuscular Volume 83.5 fL (78.0-98.0); Mean Platelet Volume 7.1 fL (7.4-10.4); Platelet Count 370 thou/uL (130-400); RBC Distribution Width 14.6 % (11.5-14.5); Red Blood Cell (RBC) Count 3.91 mill/uL (4.70-6.10); White Blood Cell (WBC) Count 17.6 thou/uL (4.8-10.8)
[2018-06-03] MEDS ORDERED: Acetaminophen 325 MG TAB PO PRN (13:49)
[2018-06-03 13:56] LABS: ALT (SGPT) 20 U/L (8-55); AST (SGOT) 17 U/L (5-34); Albumin 3.4 g/dL (3.5-5.0); Alkaline Phosphatase 76 U/L (40-150); Anion Gap 13 mmol/L (10-20); BUN (Urea Nitrogen) 22 mg/dL (8.4-25.7); Bilirubin, Total 0.4 mg/dL (0.2-1.2); Calc. Creatinine Clearance 120 mL/min (70-130); Calcium 9.2 mg/dL (7.8-10.44); Carbon Dioxide 25 mmol/L (22-29); Chloride 104 mmol/L (98-107); Estimated GFR-MDRD 81; Globulin 4.1 g/dL (2.4-3.5); Glucose 120 mg/dL (70-105); Potassium 4.5 mmol/L (3.5-5.1); Protein, Total 7.5 g/dL (6.0-8.3); Sodium 137 mmol/L (136-145)
[2018-06-03 14:04] LABS: Anisocytosis SLIGHT = 6-15 cells (100X) (0-5/hpf); CKMB 1.2 ng/mL (0-6.6); Eosinophils 1 % (0-10); Hypochromia SLIGHT = 6-15 cells (100X) (0-5/hpf); Lymphocytes 43 % (21-51); MDiff Complete? YES; Monocytes 7 % (0-10); Neutrophil 44 % (42-75); PLT Morphology Comment Appears Adequate; Reactive Lymphocytes 5 % (0-10); Troponin I 0.041 ng/mL (< 0.028)
[2018-06-03] MEDS ORDERED: Metoprolol Tartrate 5 MG/5 ML VIAL IVP SCH (16:00)
[2018-06-03] MEDS: Dronedarone HCl 400 MG TAB PO SCH (16:11)
[2018-06-03] MEDS: Sulfameth/Trimethoprim DS 800-160mg TAB PO SCH (20:40)
[2018-06-03] MEDS: Apixaban 5 MG TAB PO SCH (20:40)
[2018-06-03] MEDS: Rosuvastatin 20 MG TAB PO SCH (20:40)
--- NOTE | 2018-06-03 21:26 | HP ---
DATE OF ADMISSION: 06/03/2018 ADMITTING PHYSICIAN: Kaz Soto M.D. HISTORY OF PRESENT ILLNESS: The patient is a 58-year-old male status post recent coronary bypass gra ft from Dr. Lynn, complicated by CVA involving paralysis of right hand. He was in normal state of h ealt today. Actually, saw Dr. Lynn yesterday for wound checkup. He had a little wound to his uppe r chest area, this was treated with oral Bactrim. He was in my office today for routine followup of his hospital care. Upon listening to his heart, it was noted he is an accelerated rhythm. EKG was p erformed in my office revealed atrial flutter. The patient was unaware of this. He had no chest kika n. He was complaining of some slight throat coughing, chest congestion, clearing of his voice. He h as had no chest pain. No fever, nausea, vomiting, diarrhea. I have subsequently placed him in the h ospital for further evaluation and treatment. Upon evaluation and treatment in the hospital, it was noted he was spontaneously converted by EKG, now in sinus rhythm with a rate of 80-90. He states he is feeling a little bit better. He noted his cough and congestion has dissipated at this time. Othe rwise, no other medical complaints are noted. ALLERGIES: There is no known allergies. CURRENT MEDICATIONS: Crestor 20 mg daily, Plavix 75 mg daily, metoprolol 25 mg daily, aspirin 325 mg daily, Flomax 0.4 mg daily, fish oil capsules 1 daily, multivitamin 1 daily, Tylenol with hydrocodon e as needed for pain. PAST MEDICAL HISTORY: Significant for the above noted recent coronary bypass graft. He also has a h istory of hypertension, hypercholesterolemia, type 2 diabetes mellitus at this time. SOCIAL HISTORY: He is . He does not drink or smoke. REVIEW OF SYSTEMS: Noncontributory at this time. PHYSICAL EXAMINATION: VITAL SIGNS: Temperature 98.5, pulse 93 and regular, BP 146/71. GENERAL: He is alert, active, in no distress. HEENT: Unremarkable. NECK: Supple, full range of motion, no masses. LUNGS: Clear. HEART: Now reveals a regular rate and rhythm without murmur, gallops or rubs. ABDOMEN: Soft, nontender, bowel sounds are present and active. NEUROLOGICAL: Reveals weakness of his right hand which is improved since his last visit with me, he is still weaken ward maid. LABORATORY AND X-RAY FINDINGS: Currently pending. EKG now reveals sinus rhythm when compared to EKG in my office is significantly improved. IMPRESSION: Atrial flutter. PLAN: The patient has been placed in observation. We will consult Cardiology. It was notified to m e they had request EP consult from Dr. Bartlett. Upon questioning, I have recommendations whether he christian uld be on further accelerated anticoagulant therapy versus Plavix and aspirin.
--- NOTE | 2018-06-03 22:46 | CON ---
DATE OF CONSULTATION: 06/03/2018 ELECTROPHYSIOLOGY CONSULTATION REFERRING PHYSICIAN: Dr. Arreguin. I am seeing Mr. Andersen at our [facility] telemetry floor as an Electrophysiology sap ppm consultant for the following problems: 1. Recurrent likely atypical atrial flutter with rapid rates, especially with palpitations. 2. Coronary artery disease with a recent history of coronary artery bypass grafting surgery on 05/24/2018, x4-vessel using an intermammary artery, left radial artery and saphenous venous graft as well. 3. Recent stroke one day post-bypass surgery with infarction of left precentral gyrus. A. On aspirin and Plavix for this. 4. Preserved LV function with LVEF 50-55%, mild TR on echo 05/22/2018. 5. Risk factors including diabetes and hyperlipidemia. ALLERGIES: None noted. MEDICATIONS AT HOME: Included tamsulosin, omega 3 fatty acid, multivitamin, aspirin, 325 one daily, clopidogrel 75 mg daily, rosuvastatin 200 mg p.o. daily , metoprolol succinate 25 mg daily, sulfamethoxazole. SUBJECTIVE: Mr. Andersen started experiencing palpitations, heart fluttering, associated dyspnea yesterday evening coming and going to his primary care physician, Dr. Soto, EKG demonstrated in atypical atrial flutter. He was referred to the hospital, but by the time he arrived, his rhythm converted back to sinus rhythm. On the other hand while on monitoring, he had a recurrence at the time of my exam. He does have mild symptoms with these episodes. He has no stroke-like symptoms or neurological deficits, no fever, chills, cough are noted at this time. He still has some residual right arm weakness from his prior stroke. He denies angina-like discomfort or CHF like symptoms. His wound sites are healing well. REVIEW OF SYSTEMS: Rest of the twelve-point system is otherwise unremarkable. PAST MEDICAL HISTORY: As above. SOCIAL HISTORY: He is . No smoking, ETOH or drug abuse. FAMILY HISTORY: Significant for coronary artery disease, heart disease causing of a parent as a young age. OBJECTIVE DATA: VITAL SIGNS: Blood pressure is 146/71, heart rate 93, respirations 20, temperature 98.5 degrees Fahrenheit. GENERAL: He is alert and oriented man in no apparent distress. NECK: Supple. Jugular veins not distended. CHEST: Coarse without crackles. No carotid bruits are heard. CARDIAC: The heart sounds are regular to rate and rhythm. No murmur or gallop. Midsternal scar is healing well. ABDOMEN: Benign. Bowel sounds positive. EXTREMITIES: Lower extremities without edema, clubbing or cyanosis. The venectomy and left radial artery resection site is also healing well. DATABASE: Recent carotid Doppler from 05/26/2018 showed no hemodynamic significant stenosis. LABORATORY DATA: White cell count 17.6, hemoglobin 10.6, platelet count is 370. Sodium 137, potassium 4.5, BUN 23, creatinine 0.95. AST, ALT normal. Troponin I 0.041. Albumin 3.4. The EKGs reviewed revealing an atypical appearing atrial flutter with variable AV conduction, narrow QRS. ASSESSMENT AND PLAN: Mr. Andersen is a pleasant 58-year-old man with prior history of coronary artery disease, recent bypass surgery closely followed by a complication of small stroke resulting in right arm weakness. At that point, there is no rhythm disturbance was documented per chart. On the other hand, now he is returning with moderately symptomatic atypical atrial flutter paroxysms. The atrial flutter is recurrent at the time of my exam as well. My plan would be at this point: 1. I think it will be reasonable to consider suppressing his atrial flutter. The rhythm medication we could choose is amiodarone versus Multaq, sotalol could be also a reasonable option. I think the easiest option if financially possible would be Multaq for him. 2. Anticoagulation is a complicated issue for him, hence he is on plavix and aspirin, because of his stroke, and his recent bypass surgery. Additional anticoagulation would be recommended in view of his elevated CHADS-VASc score of 3 versus 4 depending on the true state of his diabetes. At this point, his HAS-BLED score on the other hand relatively low. After his initial phase of his surgery where surgical bleeding complication would be a high risk. Also he has been out of his recent stroke for almost 10 days and I think it would be reasonable to start him on anticoagulant. On the other hand,if any bleeding complications occur, we could consider stopping the our anticoagulants in top of the aspirin and Plavix if adequate suppression with arrhythmia is seen with antiarrhythmic agent. We discussed with Dr. Arreguin and agreed on starting Eliquis likely full dose 5 mg twice a day but dropping his aspirin to a baby aspirin dose. Should there any bleeding issues occur and rhythm suppression sufficient, likely could return to aspirin and Plavix regimen as before. I have to see this gentleman back as an outpatient and consideration of ablation procedure about 3 months after bypass surgery. Also, alternative antiarrhythmics like amiodarone versus sotalol could be considered if the Multaq does not suppress his rhythm sufficiently. MTDD
--- NOTE | 2018-06-03 22:52 | CON ---
DATE OF CONSULT: 06/03/18 HISTORY OF PRESENT ILLNESS: The patient is a 58-year-old gentleman who presented with a rapid heart rate. The patient was previously admitted with chest pain. He was found to have suffered a small no n-Q-wave myocardial infarction and underwent cardiac catheterization. He was found to have severe 3- vessel coronary artery disease. The patient subsequently underwent coronary bypass graft surgery. He had a BAUM to the LAD, saphenous vein graft to the OM and a radial graft to the ramus and diagona l. Following the procedure, the patient suffered a small cerebrovascular accident, left him with rig ht arm weakness. The patient has been slowly gaining strength. He went for followup visit today was noted to have a rapid heart rate. The patient denied having any palpitations or chest discomfort. PAST MEDICAL HISTORY: Significant for 1. Coronary artery disease. 2. Hypertension. 3. Dyslipidemia. PAST SURGICAL HISTORY: Knee surgery, foot surgery. SOCIAL HISTORY: Nonsmoker. MEDICATIONS: See nursing list. PHYSICAL EXAMINATION: GENERAL: This is a well-developed gentleman in no acute distress. VITAL SIGNS: BP 127/75. NECK: No jugular venous distention. LUNGS: Clear to auscultation. HEART: Irregular rate and rhythm, normal S1, S2, no murmurs. ABDOMEN: Nondistended. EXTREMITIES: Showed trace edema. LABORATORY RESULTS: Sodium 137, potassium 4.5, chloride 104, bicarbonate 25, BUN 22, creatinine 0.9 5, glucose 120, troponin 0.041. EKG revealed atrial flutter with variable AV conduction. IMPRESSION: 1. New onset atrial flutter. 2. History of coronary bypass surgery. 3. History of a cerebrovascular accident. 4. Hypertension. 5. Dyslipidemia. This gentleman presented with new onset atrial flutter. EPS consultation has been obtained. He is recommended the patient be started on Multaq and an oral anticoagulant since his CHADS-VASc score was 3. I will decrease the dose of his aspirin. We will follow this patient with you through his hospi talization.
[2018-06-04 07:45] LABS: Hemoglobin 9.8 g/dL (14.0-18.0); Mean Corpuscular HGB CONC 31.5 g/dL (32.0-36.0); Mean Corpuscular Hemoglobin 26.2 pg (27.0-31.0); Mean Corpuscular Volume 83.1 fL (78.0-98.0); Platelet Count 331 thou/uL (130-400); RBC Distribution Width 14.6 % (11.5-14.5); Red Blood Cell (RBC) Count 3.73 mill/uL (4.70-6.10); White Blood Cell (WBC) Count 16.6 thou/uL (4.8-10.8)
[2018-06-04 07:58] LABS: Anion Gap 12 mmol/L (10-20); BUN (Urea Nitrogen) 18 mg/dL (8.4-25.7); Calc. Creatinine Clearance 114 mL/min (70-130); Calcium 9.2 mg/dL (7.8-10.44); Carbon Dioxide 25 mmol/L (22-29); Chloride 105 mmol/L (98-107); Estimated GFR-MDRD 76; Glucose 137 mg/dL (70-105); Potassium 4.6 mmol/L (3.5-5.1); Sodium 137 mmol/L (136-145)
[2018-06-04 08:04] LABS: Band 1 % (5-11); Eosinophils 1 % (0-10); Lymphocytes 49 % (21-51); MDiff Complete? YES; Monocytes 4 % (0-10); Neutrophil 41 % (42-75); Reactive Lymphocytes 3 % (0-10)
[2018-06-04] MEDS: Dronedarone HCl 400 MG TAB PO SCH ×2 (08:12→17:26)
[2018-06-04] MEDS: Sulfameth/Trimethoprim DS 800-160mg TAB PO SCH ×2 (08:12→21:00)
[2018-06-04] MEDS: Apixaban 5 MG TAB PO SCH ×2 (08:12→21:00)
[2018-06-04] MEDS: Multivit, Therapeutic 1 TAB PO SCH (08:13)
[2018-06-04] MEDS: Fish Oil 1,000 MG CAP PO SCH (08:13)
[2018-06-04] MEDS: Tamsulosin HCl 0.4 MG CAP PO SCH (08:13)
[2018-06-04] MEDS ORDERED: Clopidogrel Bisulfate 75 MG TAB PO SCH (09:00)
[2018-06-04] MEDS ORDERED: Aspirin 325 mg Enteric Coated Tablet PO SCH (09:00)
[2018-06-04] MEDS ORDERED: Aspirin 81 mg Enteric Coated Tablet PO SCH (09:00)
--- NOTE | 2018-06-04 13:05 | PRG ---
DATE OF SERVICE: 06/04/2018 HISTORY OF PRESENT ILLNESS: The patient successfully started on Eliquis and Multaq. He continues to spontaneously convert back into sinus rhythm with small runs of atrial flutter into the 130s. The p atient (00:00) remains asymptomatic and status post CABG. Denies any formal chest pain, shortne ss of breath, being treated with Bactrim for a small satellite lesion on chest wall from incision, st arted on an outpatient basis. No fevers or chills reported. PHYSICAL EXAMINATION: VITAL SIGNS: Temperature 98.0, pulse of 89, blood pressure of 140/64, respiratory rate of 18, oxygen saturation 94% on room air. GENERAL: The patient is alert and oriented, no acute distress. HEENT: Normocephalic, atraumatic. Extraocular movements are intact. Sclerae are clear. NECK: Supple. HEART: Regular rate and rhythm at time of exam. No murmurs auscultated. ABDOMEN: Soft, nontender, positive bowel sounds throughout. Sternal incision with current serosangu ineous crust, no active exudates today. No extending erythema or pallor. ABDOMEN: Soft, nontender, positive bowel sounds throughout. EXTREMITIES: Without cyanosis or edema. Bilateral dorsalis pedis pulses 2+. NEUROLOGIC: The patient is alert and oriented x3, no focal deficits. Speech is normal. LABORATORY DATA: Includes white blood cell count of 16.6, hemoglobin of 9.8, and platelet count of 3 31. Sodium of 137, potassium of 4.6, BUN of 18, creatinine of 1.0, glucose of 137. ASSESSMENT AND PLAN: Atrial flutter, coronary artery disease status post coronary artery bypass eric t, continuing Bactrim for wound precautions on chest wall. No current signs or symptoms of sepsis or systemic infection, atrial flutter. The patient continues to spontaneously convert on his own and r emit back into the low 130s, seen by Dr. Bartlett and Dr. Arreguin yesterday. Agree with initiation of E liquis in addition to Plavix and decreasing patient's aspirin to 81 mg. He has been initiated on Mul taq for rate control option once anticoagulated for approximately 3 months will be a candidate for ab lation therapy with Dr. Bartlett on an outpatient basis. Dr. Aly to see today. The patient is stable for discharge if Cardiology feels that these temporary fluctuations in the 130s, heart rates that ar e asymptomatic are acceptable. Patient has only just had a second dose of Multaq would be understand able to keep him another day and reassess of his frequency of enduring atrial flutter. We will natasha nue to follow along and follow up on cardiology's recommendations today.
--- NOTE | 2018-06-04 16:07 | PRG ---
DATE OF SERVICE: 06/04/2018 SUBJECTIVE: Mr. Andersen feeling okay, no complaints. OBJECTIVE: VITAL SIGNS: Blood pressure 114/63, pulse is 100, it is regular at times, somewhat irregular other t imes. He is in atrial flutter on the monitor. LUNGS: Clear. CARDIAC: As outlined above. No murmur, rub or gallop. ABDOMEN: Soft, nontender. EXTREMITIES: No edema. ASSESSMENT: 1. Paroxysmal atrial flutter. 2. Recent bypass surgery. 3. Recent stroke. PLAN: 1. The patient was placed on Multaq, but it's cost prohibitive according to the family, therefore, tammy hollingsworth spoke with Dr. Bartlett and he recommends amiodarone 400 mg twice a day. The patient understand some r isk of pulmonary toxicity, which can be severe. 2. He indicates he probably will not be able to afford Eliquis. We will see if we can try to get hi m a discount card to help him with that that will turn to be a lot simpler than Coumadin. 3. We will talk with Dr. Arreguin whether he really thinks dual antiplatelet drugs are necessary in addition to the Eliquis certainly agree the Eliquis, but concern about bleeding risk with dual antipl atelet therapy as well as Eliquis.
[2018-06-04] MEDS: Rosuvastatin 20 MG TAB PO SCH (21:00)
[2018-06-04] MEDS ORDERED: Amiodarone 200 MG TAB PO SCH (21:00)
[2018-06-05 06:52] LABS: Hemoglobin 10.2 g/dL (14.0-18.0); Mean Corpuscular HGB CONC 32.5 g/dL (32.0-36.0); Mean Corpuscular Hemoglobin 27.2 pg (27.0-31.0); Mean Corpuscular Volume 83.7 fL (78.0-98.0); Mean Platelet Volume 7.6 fL (7.4-10.4); Platelet Count 349 thou/uL (130-400); RBC Distribution Width 14.7 % (11.5-14.5); Red Blood Cell (RBC) Count 3.75 mill/uL (4.70-6.10); White Blood Cell (WBC) Count 16.3 thou/uL (4.8-10.8)
[2018-06-05 07:20] LABS: Eosinophils 2 % (0-10); Lymphocytes 56 % (21-51); MDiff Complete? YES; Monocytes 11 % (0-10); Neutrophil 31 % (42-75)
[2018-06-05] MEDS: Dronedarone HCl 400 MG TAB PO SCH (08:56)
[2018-06-05] MEDS: Sulfameth/Trimethoprim DS 800-160mg TAB PO SCH (08:56)
[2018-06-05] MEDS: Fish Oil 1,000 MG CAP PO SCH (08:56)
[2018-06-05] MEDS: Apixaban 5 MG TAB PO SCH (08:56)
[2018-06-05] MEDS: Multivit, Therapeutic 1 TAB PO SCH (08:57)
[2018-06-05] MEDS: Tamsulosin HCl 0.4 MG CAP PO SCH (08:57)
[2018-06-05] MEDS ORDERED: Clopidogrel Bisulfate 75 MG TAB PO SCH ×2 (09:00→10:30)
--- NOTE | 2018-06-05 10:10 | PRG ---
DATE OF SERVICE: 06/05/2018 SUBJECTIVE: Mr. Andersen is doing well today. He still had some atrial flutter even in this morning, but the rate was controlled, the heart rate was just over 100 on the higher dose beta carlos, in sin us rhythm now. PHYSICAL EXAMINATION: LUNGS: Clear. CARDIAC: Normal S1, normal S2. ABDOMEN: Soft, nontender. EXTREMITIES: No edema. ASSESSMENT: 1. Recent bypass surgery. 2. Postoperative stroke recovered. 3. Atrial flutter, paroxysmal. PLAN: 1. He is on Eliquis 5 mg twice daily. 2. Toprol-XL dose increased to 50 mg a day. 3. Plavix 75 mg daily. Aspirin was stopped. We have decided that the risk of dual antiplatelet sharon gs plus Eliquis pauses a prohibitive bleeding risk. Patient will be seeing us in the office in a cou ple of weeks. Dr. Bartlett indicates that when it has been 3 months postoperative, he is still having fl utter, would recommend ablation be done. The patient indicates he probably cannot afford Clacendix long -term, but with some samples, he is able to pay for at least short term.
[2018-06-05 11:42] VITALS: BP 119/64; TEMP 98.6
--- NOTE | 2018-06-05 23:31 | DIS ---
DATE OF ADMISSION: 06/03/2018 DATE OF DISCHARGE: 06/05/2018 CHIEF COMPLAINT: Irregular heart beat. HISTORY OF PRESENT ILLNESS: The patient was directly admitted to the floor following evaluation for postoperative status of CABG with Dr. Kaz Soto in clinic. This is a new onset finding of atrial flutter on EKG. The patient spontaneously converted on the floor and reentered atrial flutter, mult iple times throughout his hospital stay. He is status post CABG and his vein harvest site of left fo rearm and chest wall. Given some drainage of sternal chest wall serous in consistency while admitted , the patient is continued on Bactrim started by Cardiovascular Surgery day before admission. Morena keith was seen by Dr. Arreguin, Dr. Bartlett, Dr. Aly on the weekend here, all recommended continuation of antiplatelet and initiation of anticoagulation therapies, agreed upon Eliquis 5 mg b.i.d. differing opinions on whether the patient should remain on aspirin and Plavix and to what degree, finalized opi michael without reconsulting Dr. Bartlett on the weekend was Plavix 75 mg daily, as well as Eliquis 5 mg b.i .d. The patient will discontinue his aspirin therapy until followed up on an outpatient basis. The patient's rate was controlled with Multaq while inpatient. He had no further episodes x16-20 hours p rior to discharge. Last episode was 6:00 p.m. of 06/04/2018 of atrial flutter on rhythm strips. Pat ient is asymptomatic at rest, is ambulatory. No issues with eating, drinking and using the restroom. No fevers throughout his stay regarding drainage from chest wound which was minimal serous at best. Patient to follow up with Dr. Kaz Soto within the next week with Cardiovascular Surgery as plann ed prior with Cardiology within the next month. AMBULATORY DISCHARGE MEDICATIONS: Include tamsulosin 0.4 mg, Bactrim double strength 1 tab p.o. b.i. d., Crestor 20 mg 1 tab p.o. at bedtime, omega 3 fish oil over the counter daily, multivitamin daily. Increase of metoprolol to 50 mg XL daily, Multaq 400 mg b.i.d., Plavix 75 mg daily, discontinuation of aspirin and Eliquis 5 mg 1 tab p.o. b.i.d.
[2018-06-06] MEDS ORDERED: Clopidogrel Bisulfate 75 MG TAB PO SCH (09:00)
== END 2018-06-05 12:15 | disposition home or self-care (01) | DRG 310 ==
LOC: OBSVTOIN 12:39 → 2SW 12:39
PROVIDERS: ADMIT Family Medicine; ATTEND Family Medicine
DX: I48.0 Paroxysmal atrial fibrillation (principal); Z79.01 Long term (current) use of anticoagulants; I48.92 Unspecified atrial flutter; I25.10 Atherosclerotic heart disease of native coronary artery without angina pectoris; Z95.1 Presence of aortocoronary bypass graft; Z86.73 Personal history of transient ischemic attack (TIA), and cerebral infarction without residual deficits; E78.5 Hyperlipidemia, unspecified; I10 Essential (primary) hypertension; E11.9 Type 2 diabetes mellitus without complications
CPT/HCPCS: 36415; 80048; 80053; 82553; 84484; 85025; 93005; 93010

== ENCOUNTER 2021-05-12 12:12 | Emergency (ER) | payer OTHER ==
[2021-05-12] MEDS ORDERED: Bupivacaine 0.5% 10 ML VIAL ONE (14:33)
[2021-05-12] MEDS ORDERED: Bacitracin 1 PK ONE (14:33)
[2021-05-12] MEDS ORDERED: Boostrix 0.5 ML (Tdap) VIAL ONE (14:34)
== END 2021-05-12 16:25 | disposition home or self-care (01) ==
LOC: ERS 12:12
DX: S61.217A Laceration without foreign body of left little finger without damage to nail, initial encounter (principal); I10 Essential (primary) hypertension; E11.9 Type 2 diabetes mellitus without complications; Z23 Encounter for immunization; Z79.01 Long term (current) use of anticoagulants; Z79.899 Other long term (current) drug therapy; W23.0XXA Caught, crushed, jammed, or pinched between moving objects, initial encounter
CPT/HCPCS: 12002; 90471; 90715; J3490

== ENCOUNTER 2024-10-20 14:02 | Outpatient (CLI) | payer MEDICARE, OTHER ==
[2024-10-20 16:47] LABS: INR-International Normal Ratio 1.2; Prothrombin Time 15.4 sec (12.0-14.7)
[2024-10-20 16:48] LABS: PTT 33.6 sec (22.9-36.1)
[2024-10-20 17:11] LABS: Bacteria/HPF None Seen HPF (None Seen); Bilirubin Negative (Negative); Blood, Urine Negative (Negative); Clarity Clear (Clear); Glucose, Urine (Dipstick) Normal (Negative); Ketone, Urine Negative (Negative); Leukocyte Negative Leu/uL (Negative); Nitrite Negative (Negative); Protein, Urine (Dipstick) Negative (Neg-Trace); RBC/HPF 0-3 HPF (0-3); Squamous Epithelial None Seen HPF (0-3); Urobilinogen Normal mg/dL (Less than 2); WBC/HPF 0-3 HPF (0-3); pH, Urine 5.5 (5.0-9.0)
[2024-10-20 17:50] LABS: Hemoglobin 12.2 g/dL (14.0-18.0); Mean Corpuscular HGB CONC 33.9 g/dL (32.0-36.0); Mean Corpuscular Hemoglobin 31.2 pg (27.0-31.0); Mean Corpuscular Volume 92.1 fL (78.0-98.0); Mean Platelet Volume 10.4 fL (7.4-10.4); Platelet Count 148 10x3/uL (130-400); RBC Distribution Width 14.3 % (11.5-14.5); Red Blood Cell (RBC) Count 3.91 mill/uL (4.70-6.10)
[2024-10-20 18:07] LABS: Anion Gap 15 mmol/L (10-20); BUN (Urea Nitrogen) 11 mg/dL (8.4-25.7); Calc. Creatinine Clearance 0 mL/min (70-130); Carbon Dioxide 24 mmol/L (23-31); Chloride 105 mmol/L (98-107); Estimated GFR 92; Glucose 186 mg/dL (80-115); Potassium 3.8 mmol/L (3.5-5.1); Sodium 140 mmol/L (136-145)
[2024-10-20 18:59] LABS: Band 6 % (5-11); Lymphocytes 39 % (21-51); Monocytes 19 % (0-10); Myelocyte 1 % (0-0); Neutrophil 29 % (42-75); Ovalocytes SLIGHT = 2-5 cells HPF (0-1); Platelet Adequacy Comment Platelets Normal; Polychromasia SLIGHT = 2-3 cells HPF (0-2); Reactive Lymphocytes 5 % (0-10)
== END 2024-10-20 14:03 | disposition home or self-care (01) ==
LOC: LABBT 14:02
PROVIDERS: ATTEND Urology
DX: Z01.812 Encounter for preprocedural laboratory examination (principal); I25.10 Atherosclerotic heart disease of native coronary artery without angina pectoris; N40.1 Benign prostatic hyperplasia with lower urinary tract symptoms; R97.20 Elevated prostate specific antigen [PSA]; E11.9 Type 2 diabetes mellitus without complications; I48.92 Unspecified atrial flutter; I63.9 Cerebral infarction, unspecified; C91.10 Chronic lymphocytic leukemia of B-cell type not having achieved remission
CPT/HCPCS: 80048; 81001; 85025; 85610; 85730; 87086; 93005; 93010

== ENCOUNTER 2024-11-01 12:25 | Day surgery (SDC) | payer MEDICARE, OTHER ==
[2024-11-01] MEDS ORDERED: Acetaminophen 500 MG TAB ONE (13:28)
[2024-11-01] MEDS: Acetaminophen 500 MG TAB PO SCH (13:29)
[2024-11-01] MEDS ORDERED: diphenhydrAMINE 25 MG CAP ONE (13:29)
[2024-11-01] MEDS: diphenhydrAMINE 25 MG CAP PO SCH (13:29)
[2024-11-01 14:42] VITALS: BP 162/67; TEMP 98.7
== END 2024-11-01 14:43 | disposition home or self-care (01) ==
LOC: ONC/OP 12:25
PROVIDERS: ATTEND Internal Medicine Hematology & Oncology
DX: D64.9 Anemia, unspecified (principal); D69.6 Thrombocytopenia, unspecified
CPT/HCPCS: 36430; 86850; 86900; 86901; P9035

== ENCOUNTER 2025-06-25 15:36 | Outpatient (CLI) | payer MEDICARE, OTHER | END 2025-06-25 15:37 | disposition home or self-care (01) | LOC: LABBT 15:36 | PROVIDERS: ATTEND Internal Medicine Cardiovascular Disease | DX: Z01.810 Encounter for preprocedural cardiovascular examination (principal); I48.0 Paroxysmal atrial fibrillation | CPT/HCPCS: 93005; 93010 ==

== ENCOUNTER 2025-06-27 09:11 | Day surgery (SDC) | payer MEDICARE, OTHER ==
[2025-06-25 15:49] VITALS: BMI 33.9
[2025-06-25 16:27] LABS: #Basophils Less than 0.03 10x3/uL (0.0-0.2); #Eosinophils 0.08 10x3/uL (0.0-0.7); #Monocytes 0.56 10x3/uL (0.11-0.59); #Neutrophils 3.82 10x3/uL (1.40-6.50); %Basophils 0.3 % (0.0-1.0); %Eosinophils 1.4 % (0.0-10.0); %Lymphocytes 23.1 % (21.0-51.0); %Monocytes 9.6 % (0.0-10.0); %Neutrophils 65.3 % (42.0-75.0); Hematocrit 37.9 % (42.0-52.0); Hemoglobin 12.9 g/dL (14.0-18.0); Mean Corpuscular Hemoglobin 31.3 pg (27.0-31.0); Mean Corpuscular Volume 92.0 fL (78.0-98.0); Platelet Count 149 10x3/uL (130-400); Red Blood Cell (RBC) Count 4.12 mill/uL (4.70-6.10); White Blood Cell (WBC) Count 5.85 10x3/uL (4.8-10.8)
[2025-06-25 16:42] LABS: ALT (SGPT) 39 U/L (Less than 45); AST (SGOT) 30 U/L (11-34); Albumin 3.8 g/dL (3.1-4.5); Alkaline Phosphatase 102 U/L (40-110); Anion Gap 15 mmol/L (10-20); BUN (Urea Nitrogen) 15 mg/dL (8.4-25.7); Bilirubin, Total 0.7 mg/dL (0.3-1.2); Calc. Creatinine Clearance 0 mL/min (70-130); Calcium 9.1 mg/dL (7.8-10.44); Carbon Dioxide 24 mmol/L (23-31); Chloride 104 mmol/L (98-107); Globulin 3.6 g/dL (2.4-3.5); Glucose 176 mg/dL (80-115); Potassium 4.0 mmol/L (3.5-5.1); Sodium 139 mmol/L (136-145)
[2025-06-25 17:08] LABS: INR-International Normal Ratio 1.2; Prothrombin Time 14.8 sec (12.0-14.7)
[2025-06-25 17:09] LABS: PTT 32.8 sec (22.9-36.1)
[2025-06-27] MEDS ORDERED: Isoproterenol 0.2 MG/1 ML AMP ONE (10:02)
[2025-06-27] MEDS ORDERED: Heparin 10,000 UNITS/ 10 ML VIAL ONE (10:02)
[2025-06-27] MEDS ORDERED: fentaNYL PF 100 MCG/2 ML SYRINGE ONE (11:21)
[2025-06-27] MEDS ORDERED: Sevoflurane 250 ML INH ANEST BOTTLE ONE (11:21)
[2025-06-27] MEDS ORDERED: PROPOFOL 200 MG/20 ML VIAL ONE (11:50)
[2025-06-27] MEDS ORDERED: Lidocaine 1% PF 5 ML VIAL ONE (11:50)
[2025-06-27] MEDS ORDERED: Rocuronium Bromide 10 MG/ML (10ML VIAL) ONE (11:50)
[2025-06-27] MEDS ORDERED: PHENYLEPHRINE-NS 100 MCG/ML 10 ML SYRINGE ONE (11:50)
[2025-06-27] MEDS ORDERED: Ondansetron PF 4 MG/2 ML Vial ONE (11:50)
[2025-06-27] MEDS ORDERED: SUGAMMADEX SODIUM 200 MG/2 ML VIAL ONE (13:25)
[2025-06-29 16:50] LABS: Myoglobin, Serum 61.0 ng/mL
[2025-06-29 16:51] LABS: Hemoglobin,Free - Plasma 3.7
== END 2025-06-27 18:12 | disposition home or self-care (01) ==
LOC: SDC 09:11
PROVIDERS: ATTEND Internal Medicine Cardiovascular Disease
PROC: 4A023FZ Measurement of Cardiac Rhythm, Percutaneous Approach (ICD-10-PCS; principal; 2025-06-27)
PROC: 02583ZZ Destruction of Conduction Mechanism, Percutaneous Approach (ICD-10-PCS; 2025-06-27)
DX: I48.0 Paroxysmal atrial fibrillation (principal); I48.4 Atypical atrial flutter; I50.30 Unspecified diastolic (congestive) heart failure; Z95.1 Presence of aortocoronary bypass graft; Z86.73 Personal history of transient ischemic attack (TIA), and cerebral infarction without residual deficits; Z85.6 Personal history of leukemia; Z79.01 Long term (current) use of anticoagulants
CPT/HCPCS: 85347 ×2; 93005; 93623; 93656; 93657; C1730; C1732; C1733; C1759; C1760; C1766; C1769; C1893; C1894 ×2; J1100; J1644 ×2; J2405; J2704; J2720; J3010; 80053; 83010; 83051; 83874; 85025; 85610; 85730; 86850; 86900; 86901; 93010